=== PATIENT | female | born 1980 | race Caucasian/White ===

== ENCOUNTER 2020-02-15 12:16 | Emergency (ER) | payer OTHER ==
[2020-02-15] MEDS ORDERED: MORPHINE 2 MG/ML CARPUJECT IVP STA (12:48)
--- NOTE | 2020-02-15 12:53 | ED Physician Documentation ---
History of Present Illness - Stated complaint Stated Complaint: C? SOA - Chief complaint Chief Complaint: Resp - History obtained from History obtained from: Patient - Additonal information Additional information: Patient comes emergency department complaining of shortness of breath and cough worsening over the last week. Patient has a history of asthma and does have seasonal allergies. She states the allergies generally are what triggered her asthma. She has not been running fevers but has had a very bad cough , Which has been mildly productive of sputum. 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 She has not been tested for this yet. Patient states that she has been feeling generally weaker today and dizzy. She states she has been drinking plenty of fluid and does not feel that she is dehydrated. She is concerned that she has pneumonia. She was put on a Z-Richard a week ago and finished it a few days ago does not feel that she had any improvement. No other complaints at this time. Review of Systems Ten Systems: 10 systems reviewed and negative Constitutional: reports: Reviewed and negative Eyes: reports: Reviewed and negative Ears: reports: Reviewed and negative Nose: reports: Rhinorrhea / runny nose (Very mild) Throat: reports: Reviewed and negative Cardiac: reports: Reviewed and negative Respiratory: reports: Dyspnea, Cough GI: reports: Reviewed and negative : reports: Reviewed and negative Skin: reports: Reviewed and negative Musculoskeletal: reports: Reviewed and negative Neurologic: reports: Reviewed and negative Psychiatric: reports: Reviewed and negative Endocrine: reports: Reviewed and negative Immunocompromised: reports: Reviewed and negative PD PAST MEDICAL HISTORY - Past Medical History Respiratory: Asthma Neuro: Migraines - Past Surgical History Past 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 History: 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: 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, Oophrectomy - Present Medications Home Medications: Ambulatory Orders Medication Instructions Recorded Confirmed Albuterol Sulfate [Proair Hfa 1 - 2 puffs INH Q4H PRN 08/16/19 10/27/19 Inhaler] Cetirizine [ZyrTEC] 10 mg PO DAILY 08/16/19 10/27/19 Cyanocobalamin (Vitamin B-12) 1,000 mg ORAL DAILY 08/16/19 10/27/19 [Vitamin B-12] Fluticasone [Flonase] 1 sprays FABIEN BID 08/16/19 10/27/19 Rizatriptan Benzoate [Maxalt] 10 mg ORAL PRN PRN MDD 3 tabs 08/16/19 10/27/19 Hydrocodone/Acetaminophen [Lortab 10 ml PO Q6HR PRN 5 Days #200 02/15/20 10 mg-300 mg/15 ml Elxr] solution Tizanidine HCl 02/15/20 - Allergies Allergies/Adverse Reactions: Allergies Allergy/AdvReac Type Severity Reaction Status Date / Time NSAIDS (Non-Steroidal Allergy Respiratory Verified 02/15/20 12:23 Anti-Inflamma weed pollen Allergy Rash Verified 02/15/20 12:23 red dye AdvReac Headache Verified 02/15/20 12:23 - Social History Does the pt smoke?: No Smoking Status: Never smoker Does the pt drink ETOH?: No - Immunizations Immunizations are current?: Yes - POLST Patient has POLST: No PD ED PE NORMAL - Vitals Vital signs reviewed: Yes - General General: Alert and oriented X 3, No acute distress - HEENT HEENT: Atraumatic, PERRL, EOMI, Moist mucous membranes, Pharynx benign - Neck Neck: Supple, no meningeal sign - Cardiac Cardiac: No murmur, Strong equal pulses, Other (Regular rhythm, mildly tachycardic.) - Respiratory Respiratory: No respiratory distress, Clear bilaterally - Abdomen Abdomen: Soft, Non tender, Non distended - Back Back: Other (Grossly normal range of motion.) - Derm Derm: Normal color, Warm and dry, No rash - Extremities Extremities: No deformity, No edema, No calf tenderness / cord - Neuro Neuro: Alert and oriented X 3, 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, No motor deficit, No sensory deficit, Normal speech - Psych Psych: Normal mood, Normal affect Results - Vitals Vitals: Oxygen O2 Source Room air - Labs Labs: Laboratory Tests 02/15/20 02/15/20 02/15/20 13:05 13:38 13:38 WBC 8.7 RBC 4.28 Hgb 13.5 Hct 41.2 MCV 96.3 MCH 31.5 H MCHC 32.8 RDW 12.6 Plt Count 224 MPV 10.3 Neut # (Auto) 5.2 Lymph # (Auto) 2.5 Mccone # (Auto) 0.9 Eos # (Auto) 0.0 Baso # (Auto) 0.0 Absolute Nucleated RBC 0.00 Nucleated RBC % 0.0 Sodium 138 Potassium 3.7 Chloride 104 Carbon Dioxide 25 Anion Gap 9.0 BUN 22 H Creatinine 0.6 Estimated GFR (MDRD) 111 Glucose 89 Lactic Acid Calcium 10.1 Total Bilirubin 0.6 AST 18 ALT 17 Alkaline Phosphatase 58 Total Protein 8.1 Albumin 4.8 Globulin 3.3 Albumin/Globulin Ratio 1.5 Lipase 40 Coronavirus (PCR) NEGATIVE 02/15/20 13:38 WBC RBC Hgb Hct MCV MCH MCHC RDW Plt Count MPV Neut # (Auto) Lymph # (Auto) Mccone # (Auto) Eos # (Auto) Baso # (Auto) Absolute Nucleated RBC Nucleated RBC % Sodium Potassium Chloride Carbon Dioxide Anion Gap BUN Creatinine Estimated GFR (MDRD) Glucose Lactic Acid 1.0 Calcium Total Bilirubin AST ALT Alkaline Phosphatase Total Protein Albumin Globulin Albumin/Globulin Ratio Lipase Coronavirus (PCR) - Rads (name of study) chest x-ray Radiology: Final report received, EMP read indepedently, See rad report (negative) PD MEDICAL DECISION MAKING - ED course Complexity details: reviewed results, re-evaluated patient, considered differential, d/w patient ED course: The patient was worked up with labs, chest x-ray, and Covid testing. She was given IV fluids, and did ask for something to help with the rib pain that she has been having from coughing. She stated that NSAIDs are not tolerated well by her system, so I did offer her a small dose of morphine, to which she did agree. Pt's work-up was negative in the ED. Her COVID testing was pending at the time of discharge, and she will be notified if positive. We have discussed home management of sx, as well as the usual indications for return. Departure - Departure Disposition: 01 Home, Self Care Clinical Impression: Acute viral bronchitis Upper respiratory tract infection Qualifiers: URI type: unspecified viral URI Qualified Code(s): J06.9 - Acute upper respiratory infection, unspecified Condition: Stable Instructions: ED Upper Resp Infec No Abx Tx Prescriptions: Hydrocodone/Acetaminophen [Lortab 10 mg-300 mg/15 ml Elxr] 10 ml PO Q6HR PRN 5 Days #200 solution PRN Reason: cough/pain Comments: All of your testing looks good. Both your initial chest x-ray and your repeat chest x-ray showed no evidence of pneumonia or other abnormality. Your oxygen saturation has remained high throughout your stay here. Your lungs have remained clear. Your coven test is pending at this time, and you should receive results within 24 to 48 hours from now. You may continue the cough medicine that you have been taking, or take the medication prescribed, as needed. Please follow-up with your primary doctor if you are not feeling better in the next week. If you develop high fevers or worsening shortness of breath, you may return to the emergency department for reevaluation. Discharge Date/Time: 02/15/20 17:05
[2020-02-15] MEDS ORDERED: SODIUM CHLORIDE 0.9% 1,000 ML IV ONE ×2 (13:12→14:35)
[2020-02-15] MEDS ORDERED: diphenhydrAMINE INJ 50 MG/ML VIAL IVP STA (13:28)
--- NOTE | 2020-02-15 13:31 | XRAY Report ---
Reason: chest pain Procedure Date: 02/15/2020 Accession Number: [id number] / [id number] Procedure: XR - Chest 1 View X-Ray CPT Code: 78751 Final Report FULL RESULT: EXAM: CHEST RADIOGRAPHY EXAM DATE: 02/15/2020 01:20 PM. CLINICAL HISTORY: Chest pain. COMPARISON: None. TECHNIQUE: 1 view. FINDINGS: Lungs/Pleura: No focal opacities evident. No pleural effusion. No pneumothorax. Mediastinum: Within exam limitations, the cardiomediastinal contour is normal. Other: None. IMPRESSION: Normal single view chest. RADIA
[2020-02-15 13:51] LABS: BASOPHILS % (AUTO) 0.3 %; EOSINOPHILS % (AUTO) 0.2 %; HGB - HEMOGLOBIN 13.5 g/dL (12.0-16.0); LYMPHOCYTES # (AUTO) 2.5 10^3/uL (1.5-3.5); LYMPHOCYTES % (AUTO) 29.1 %; MEAN CORPUSCULAR HEMOGLOBIN 31.5 pg (27.0-31.0); MEAN CORPUSCULAR HGB CONC 32.8 g/dL (32.0-36.0); MEAN CORPUSCULAR VOLUME 96.3 fL (81.0-99.0); MEAN PLATELET VOLUME 10.3 fL (7.9-10.8); MONOCYTES # (AUTO) 0.9 10^3/uL (0.0-1.0); MONOCYTES % (AUTO) 10.6 %; NEUTROPHILS # (AUTO) 5.2 10^3/uL (1.5-6.6); NEUTROPHILS % (AUTO) 59.6 %; PLT - PLATELET COUNT 224 10^3/uL (130-450); RED BLOOD COUNT 4.28 10^6/uL (4.20-5.40); RED CELL DISTRIBUTION WIDTH 12.6 % (12.0-15.0); WHITE BLOOD COUNT 8.7 x10^3/uL (4.8-10.8)
[2020-02-15 14:03] LABS: ALBUMIN 4.8 g/dL (3.2-5.5); ALBUMIN/GLOBULIN RATIO 1.5 (1.0-2.2); BILIRUBIN,TOTAL 0.6 mg/dL (0.2-1.0); CALCIUM 10.1 mg/dL (8.5-10.3); CREATININE 0.6 mg/dL (0.4-1.0); TOTAL PROTEIN 8.1 g/dL (6.7-8.2)
--- NOTE | 2020-02-15 16:28 | XRAY Report ---
Reason: sob with hydration Procedure Date: 02/15/2020 Accession Number: [id number] / [id number] Procedure: XR - Chest 1 View X-Ray CPT Code: 10643 Final Report FULL RESULT: EXAM: CHEST RADIOGRAPHY EXAM DATE: 02/15/2020 04:16 PM. CLINICAL HISTORY: Shortness of breath with hydration. COMPARISON: CHEST 1 VIEW 02/15/2020 12:54 PM. TECHNIQUE: 1 view. FINDINGS: Lungs/Pleura: No focal opacities evident. No pleural effusion. No pneumothorax. No pulmonary edema. Mediastinum: Within exam limitations, the cardiomediastinal contour is normal. Other: None. IMPRESSION: No pulmonary edema identified. RADIA
[2020-02-15 16:39] VITALS: BP 139/85
== END 2020-02-15 17:05 | disposition home or self-care (01) ==
LOC: ED 12:16
DX: J20.8 Acute bronchitis due to other specified organisms (principal); J06.9 Acute upper respiratory infection, unspecified; Z20.828 Contact with and (suspected) exposure to other viral communicable diseases
CPT/HCPCS: 36415; 71045; 80053; 83605; 83690; 85025; 87635; 96361; 96374; 99284; 99285; J1200; 81599

== ENCOUNTER 2020-05-14 12:55 | Emergency (ER) | payer OTHER ==
[2020-05-14 13:22] LABS: BILIRUBIN,URINE NEGATIVE (NEGATIVE); GLUCOSE, URINE (UA) NEGATIVE (NEGATIVE); KETONES,URINE (UA) NEGATIVE (NEGATIVE); LEUKOCYTE ESTERASE, URINE NEGATIVE (NEGATIVE); NITRITE,URINE NEGATIVE (NEGATIVE); OCCULT BLOOD,URINE NEGATIVE (NEGATIVE); PROTEIN,URINE NEGATIVE (NEGATIVE); UROBILINOGEN,URINE 0.2 (NORMAL) E.U./dL (NORMAL)
[2020-05-14 13:25] LABS: CLARITY,URINE CLEAR (CLEAR)
[2020-05-14 13:40] LABS: EOSINOPHILS # (AUTO) 0.1 10^3/uL (0.0-0.7); EOSINOPHILS % (AUTO) 1.3 %; LYMPHOCYTES # (AUTO) 1.6 10^3/uL (1.5-3.5); LYMPHOCYTES % (AUTO) 40.2 %; MEAN CORPUSCULAR HEMOGLOBIN 32.6 pg (27.0-31.0); MEAN CORPUSCULAR HGB CONC 33.1 g/dL (32.0-36.0); MEAN CORPUSCULAR VOLUME 98.6 fL (81.0-99.0); MEAN PLATELET VOLUME 9.9 fL (7.9-10.8); MONOCYTES # (AUTO) 0.4 10^3/uL (0.0-1.0); MONOCYTES % (AUTO) 10.2 %; NEUTROPHILS # (AUTO) 1.8 10^3/uL (1.5-6.6); PLT - PLATELET COUNT 233 10^3/uL (130-450); RED BLOOD COUNT 4.29 10^6/uL (4.20-5.40); RED CELL DISTRIBUTION WIDTH 12.1 % (12.0-15.0); WHITE BLOOD COUNT 3.9 x10^3/uL (4.8-10.8)
[2020-05-14 13:54] LABS: ALBUMIN 5.1 g/dL (3.2-5.5); ALBUMIN/GLOBULIN RATIO 1.7 (1.0-2.2); BILIRUBIN,TOTAL 0.7 mg/dL (0.2-1.0); CALCIUM 9.8 mg/dL (8.5-10.3); CREATININE 0.7 mg/dL (0.4-1.0); TOTAL PROTEIN 8.1 g/dL (6.7-8.2)
--- NOTE | 2020-05-14 14:37 | ED Physician Documentation ---
PD HPI FEMALE - Stated complaint Stated Complaint: PELVIC PX - Chief complaint Chief Complaint: Abd Pain - History obtained from History obtained from: Patient - History of Present Illness Timing - onset: How many days ago (few) Timing - duration: Days (2-3) Timing - details: Gradual onset, Still present, Waxing and waning Associated symptoms: Pelvic pain, Dysuria, Urinary frequency. No: Fever, Back pain, Vaginal discharge, Genital sore/lesion Contributing factors: 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, Sexually active. No: Exposed to STD Similar symptoms before: Diagnosis (endometriosis.) Recently seen: Not recently seen Review of Systems Constitutional: denies: Fever, Chills Nose: denies: Rhinorrhea / runny nose, Congestion Throat: denies: Sore throat Respiratory: denies: Cough GI: reports: Abdominal Pain, Nausea. denies: Vomiting, Constipation, Diarrhea : reports: Dysuria, Frequency. 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, Oophrectomy - Present Medications Home Medications: Ambulatory Orders Medication Instructions Recorded Confirmed Albuterol Sulfate [Proair Hfa 1 - 2 puffs INH Q4H PRN 08/16/19 03/09/20 Inhaler] Cetirizine [ZyrTEC] 10 mg PO DAILY 08/16/19 03/09/20 Cyanocobalamin (Vitamin B-12) 1,000 mg ORAL DAILY 08/16/19 03/09/20 [Vitamin B-12] Fluticasone [Flonase] 1 sprays FABIEN BID 08/16/19 03/09/20 Rizatriptan Benzoate [Maxalt] 10 mg ORAL PRN PRN MDD 3 tabs 08/16/19 03/09/20 Hydrocodone/Acetaminophen [Lortab 10 ml PO Q6HR PRN 5 Days #200 02/15/20 03/09/20 10 mg-300 mg/15 ml Elxr] solution Tizanidine HCl 1 tab PO DAILY 02/15/20 03/09/20 Cephalexin [Keflex] 500 mg PO TID #18 capsule 05/14/20 Hydrocodone/Acetaminophen [[place] 1 each PO Q6H PRN #20 tablet 05/14/20 5-325 Tablet] Ondansetron Odt [Zofran] 4 mg TL Q6H PRN #10 tablet 05/14/20 dexAMETHasone [Decadron] 4 mg PO DAILY #5 tablet 05/14/20 - Allergies Allergies/Adverse Reactions: Allergies Allergy/AdvReac Type Severity Reaction Status Date / Time NSAIDS (Non-Steroidal Allergy Respiratory Verified 02/15/20 12:23 Anti-Inflamma weed pollen Allergy Rash Verified 02/15/20 12:23 red dye AdvReac Headache Verified 02/15/20 12:23 - Social History Does the pt smoke?: No Smoking Status: Never smoker Does the pt drink ETOH?: No - Immunizations Immunizations are current?: Yes - POLST Patient has POLST: No PD ED PE NORMAL - Vitals Vital signs reviewed: Yes - General General: Alert and oriented X 3, Well developed/nourished, Other (appears in pain) - HEENT HEENT: Pharynx benign - Neck Neck: Supple, no meningeal sign, No adenopathy - Cardiac Cardiac: RRR, No murmur - Respiratory Respiratory: Clear bilaterally - Abdomen Abdomen: Normal bowel sounds, Soft, Non distended, No organomegaly, Other (Tender markedly in suprapubic area and RLQ with guarding and some percussion tender. Not tender mid nor upper abd. 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 There is no obvious discharge in the vaginal vault. There is tenderness on the speculum exam mostly to the suprapubic and right area. No obvious sores noted. Swabs are obtained.) - Rectal Rectal: Deferred - Back Back: No CVA TTP - Derm Derm: Normal color, Warm and dry, No rash - Extremities Extremities: No deformity, No tenderness to palpate, Normal ROM s pain, No edema, No calf tenderness / cord - Neuro Neuro: Alert and oriented X 3, No motor deficit, Normal speech Results - Vitals Vitals: Vital Signs - 24 hr 05/14/20 05/14/20 05/14/20 13:04 14:38 17:32 Temperature 36.6 C 37.1 C Heart Rate 98 89 69 Respiratory 18 16 20 Rate Blood Pressure 147/103 H 136/96 H 109/64 O2 Saturation 100 97 97 Oxygen O2 Source Room air - Labs Labs: Laboratory Tests 05/14/20 05/14/20 05/14/20 13:14 13:30 13:30 WBC 3.9 L RBC 4.29 Hgb 14.0 Hct 42.3 MCV 98.6 MCH 32.6 H MCHC 33.1 RDW 12.1 Plt Count 233 MPV 9.9 Neut # (Auto) 1.8 Lymph # (Auto) 1.6 Delta # (Auto) 0.4 Eos # (Auto) 0.1 Baso # (Auto) 0.0 Absolute Nucleated RBC 0.00 Nucleated RBC % 0.0 Sodium 138 Potassium 3.9 Chloride 101 Carbon Dioxide 28 Anion Gap 9.0 BUN 12 Creatinine 0.7 Estimated GFR (MDRD) 93 Glucose 109 H Calcium 9.8 Total Bilirubin 0.7 AST 18 ALT 17 Alkaline Phosphatase 70 Total Protein 8.1 Albumin 5.1 Globulin 3.0 Albumin/Globulin Ratio 1.7 Lipase 40 Urine Color YELLOW Urine Clarity CLEAR Urine pH 7.0 Ur Specific [place] <=1.005 Urine Protein NEGATIVE Urine Glucose (UA) NEGATIVE Urine Ketones NEGATIVE Urine Occult Blood NEGATIVE Urine Nitrite NEGATIVE Urine Bilirubin NEGATIVE Urine Urobilinogen 0.2 (NORMAL) Ur Leukocyte Esterase NEGATIVE Ur Microscopic Review NOT INDICATED Urine Culture Comments NOT INDICATED - Rads (name of study) abd/pelvic CT Radiology: Prelim report reviewed (Status post hysterectomy and appendectomy. No acute cause of pain noted.), See rad report PD MEDICAL DECISION MAKING - ED course Complexity details: reviewed results (Normal urine and labs and CT scan. At this point consider possibility of vaginitis and will do pelvic exam. Also consider endometriosis that she has had in the past.), re-evaluated patient (tender pelvic area and lower abd but improved. ), considered differential (Consider UTI, diverticulitis, pelvic abscess, vaginitis, endometriosis. Does not have appendix. Has had complete hyst. ), d/w patient Departure - Departure Disposition: 01 Home, Self Care Clinical Impression: Dysuria, Pelvic pain Condition: Stable Record reviewed to determine appropriate education?: Yes Instructions: ED Dysuria Uncertain Cause, ED Pelvic Pain [facility] Follow-Up: Rosalia Plaza, [employer] [Primary Care Provider] - Prescriptions: dexAMETHasone [Decadron] 4 mg PO DAILY #5 tablet Cephalexin [Keflex] 500 mg PO TID #18 capsule Hydrocodone/Acetaminophen [[place] 5-325 Tablet] 1 each PO Q6H PRN #20 tablet PRN Reason: Pain Ondansetron Odt [Zofran] 4 mg TL Q6H PRN #10 tablet PRN Reason: Nausea / Vomiting Comments: I do not have a clear answer for the cause of your symptoms. Your urine test appears normal as does the vaginal exam. However your urinary symptoms could be suggestive of a urethral infection so we can go with an antibiotic empirically in case. The vaginal swab cultures will result in a day or 2 to determine if there is a more occult vaginitis. Other considerations could be endometriosis and so some anti-inflammatory and pain medicine for that. Recheck if not improved well over the next 2 to 3 days and return sooner if worsening. Discharge Date/Time: 05/14/20 17:50
[2020-05-14] MEDS ORDERED: SODIUM CHLORIDE 0.9% 1,000 ML IV STA (14:59)
[2020-05-14] MEDS ORDERED: HYDROmorphone 1 MG/ML CARPUJECT IVP STA ×2 (14:59→16:19)
[2020-05-14] MEDS ORDERED: IOVERSOL 320 100 ML VIAL IVP ONE ×2 (15:15→16:31)
--- NOTE | 2020-05-14 15:52 | CT Report ---
PROCEDURE: Abdomen/Pelvis W INDICATIONS: lower abd pain CONTRAST: IV CONTRAST: Optiray 320 ml: 100 PO CONTRAST: *NO PO CONTRAST TECHNIQUE: After the administration of oral and intravenous contrast, 5 mm thick sections acquired from the diap hragms to the symphysis. 5 mm thick coronal and sagittal reformats were acquired. For radiation dos e reduction, the following was used: automated exposure control, adjustment of mA and/or kV accordin g to patient size. COMPARISON: None. FINDINGS: Image quality: Excellent. ABDOMEN: Lung bases: Lung bases are clear. Heart size is normal. Asymmetric elevation of the right hemidiaph ragm. Solid organs: Liver and spleen are normal in size and enhancement. Small hypodense foci in the liver most likely benign cyst or hemangioma. Focal fatty infiltration at the falciform ligament. [place] er is unremarkable. Biliary system is non dilated. Pancreas enhances normally. No adrenal nodules. Kidneys demonstrate normal size and enhancement, without hydronephrosis. Peritoneum and bowel: Bowel loops demonstrate normal wall thickness and caliber. Prominent stool the colon. The appendix is not identified. No free fluid or air. Nodes and vessels: No retroperitoneal or mesenteric adenopathy by size criteria. Aorta and inferior vena cava are normal in size. Miscellaneous: No ventral hernias. PELVIS: Genitourinary: Bladder is unremarkable. Uterus is absent. Miscellaneous: No inguinal hernias or adenopathy. Bones: No suspicious bony lesions. No vertebral body compression fractures. IMPRESSION: No acute inflammatory process identified. No free fluid. Prominent stool in the colon. Reviewed by: Wilton Solis MD on 05/14/2020 3:50 PM PDT Approved by: Wilton Solis MD on 05/14/2020 3:50 PM PDT Station ID: [id number]
[2020-05-14] MEDS ORDERED: DEXAMETHASONE 10 MG/ML VIAL IVP STA (16:19)
[2020-05-14] MEDS ORDERED: cephALEXin 250 MG CAPSULE PO STA (17:28)
[2020-05-14] MEDS ORDERED: ONDANSETRON 4 MG/2 ML VIAL IVP STA (17:32)
[2020-05-14 17:35] VITALS: BP 109/64
[2020-05-14 19:44] LABS: CANDIDA GROUP DNA NEGATIVE (NEGATIVE); CANDIDA KRUSEI DNA NEGATIVE (NEGATIVE); TRICHOMONAS VAGINALIS DNA NEGATIVE (NEGATIVE)
[2020-05-14 20:52] LABS: TRICHOMONAS VAGINALIS DNA NEGATIVE (NEGATIVE)
== END 2020-05-14 17:50 | disposition home or self-care (01) ==
LOC: ED 12:55
DX: R10.2 Pelvic and perineal pain (principal); R30.0 Dysuria; R11.0 Nausea; Z90.710 Acquired absence of both cervix and uterus; Z90.49 Acquired absence of other specified parts of digestive tract
CPT/HCPCS: 36415; 74177; 80053; 81003; 83690; 85025; 87481; 87491; 87591; 87661; 87801; 96361; 96374; 96375; 96376; 99284; A9270; J1170; Q9967; 81001; 87086